=== PATIENT | female | born 1970 | race Caucasian/White ===

== ENCOUNTER 2018-08-17 14:17 | Emergency (ER) | payer OTHER ==
[2018-08-17 14:22] VITALS: BP 126/75; PULSE 68; RESP 16; TEMP 98.1
--- NOTE | 2018-08-17 14:39 | ED ---
General Adult HPI - General Chief complaint: Wound/Laceration Stated complaint: Knee laceration Time Seen by Provider: 08/17/18 14:25 Source: patient Mode of arrival: ambulatory Limitations: no limitations - History of Present Illness Initial comments: 47-year-old female with a 2 cm diameter avulsion along the patellar tendon on the left side. Patient reports falling from a bunkbed. Patient was given ibu for pain. Patient states her tetanus status is up-to-date. It was covered with bacitracin, Vaseline gauze. Proper wound care instructions.I counseled the patient for smoking cessation for greater than 3 minutes - Related Data Allergies Allergy/AdvReac Type Severity Reaction Status Date / Time No Known Allergies Allergy Verified 08/17/18 14:22 Review of Systems ROS Statement: Those systems with pertinent positive or pertinent negative responses have been documented in the HPI. ROS Other: All systems not noted in ROS Statement are negative. Past Medical History Past Medical History: No Reported History History of Any Multi-Drug Resistant Organisms: None Reported Past Surgical History: No Surgical Hx Reported Past Psychological History: No Psychological Hx Reported Smoking Status: Current every day smoker Past Alcohol Use History: Abuse, Daily, Heavy Past Drug Use History: None Reported General Exam Limitations: no limitations General appearance: alert, in no apparent distress Head exam: Present: atraumatic, normocephalic, normal inspection Eye exam: Present: normal appearance, PERRL, EOMI Pupils: Present: normal accommodation ENT exam: Present: normal exam, normal oropharynx, mucous membranes moist, TM's normal bilaterally Neck exam: Present: normal inspection Respiratory exam: Present: normal lung sounds bilaterally Cardiovascular Exam: Present: regular rate, normal rhythm, normal heart sounds Extremities exam: Present: full ROM, normal capillary refill Left Upper Leg exam: Present: normal inspection, full ROM Knee exam: Absent: normal inspection (2 cm diameter superficial avulsion along patella tendon) Lower Leg exam: Present: normal inspection, full ROM Ankle exam: Present: normal inspection, full ROM Foot/Toe exam: Present: normal inspection, full ROM Back exam: Present: normal inspection, full ROM Neurological exam: Present: alert, oriented X3 Psychiatric exam: Present: normal affect, normal mood Skin exam: Present: warm, intact, normal color Course Vital Signs 08/17/18 14:18 Temperature 98.1 F Pulse Rate 68 Respiratory 16 Rate Blood Pressure 126/75 O2 Sat by Pulse 97 Oximetry Medical Decision Making - Medical Decision Making Patient is a 47-year-old presents emergency Department with an avulsion on the left knee. Based on physical examination the patient does not required sutures. Triple Antibiotic and Vaseline gauze was placed on avulsion. Patient advised to follow proper wound care structures. Patient advised to follow up with primary care. Patient advised to return to emergency department if symptoms worsen. Patient advised to alternate between Tylenol and ibuprofen for pain control. Case discussed with physician. Disposition Clinical Impression: Avulsion, skin Disposition: HOME SELF-CARE Condition: Stable Instructions (If sedation given, give patient instructions): Skin Avulsion (ED) Additional Instructions: Please follow proper wound care instructions. Please replace gauze after 24 hours. Please return to emergency department if symptoms worsen. Please follow with primary care. Is patient prescribed a controlled substance at d/c from ED?: No Referrals: Nonstaff,Physician [Primary Care Provider] - 1-2 days Time of Disposition: 14:39
[2018-08-17] MEDS: ACETAMINOPHEN TAB 325 MG TAB PO STA ×2 (14:54→14:57)
[2018-08-17] MEDS ORDERED: IBUPROFEN 200 MG TAB PO STA (14:57)
== END 2018-08-17 15:26 | disposition home or self-care (01) ==
LOC: EC 14:17
DX: S81.002A Unspecified open wound, left knee, initial encounter (principal); F17.200 Nicotine dependence, unspecified, uncomplicated; Z71.6 Tobacco abuse counseling; W06.XXXA Fall from bed, initial encounter; Y92.009 Unspecified place in unspecified non-institutional (private) residence as the place of occurrence of the external cause
CPT/HCPCS: 99282; 99406